=== PATIENT | female | born 1980 | race Caucasian/White ===

== ENCOUNTER 2017-04-07 22:13 | Emergency (ER) | payer MEDICAID ==
[~2017-04-07] VITALS: Ht 170.2 cm; Wt 65.8 kg
[~2017-04-07 22:13] MED LIST: FLEXERIL10 MG PO; GABAPENTIN100 M1 OR; LIDODERM 5% PA1 EACH TD; LORTAB 500 MG-71 TAB OR; NEXIUM40 MG PO; TYLENOL W/CODEI1 TA2 PO; ZITHROMAX Z PA250 MG PO
--- NOTE | 2017-04-07 22:39 | Emergency Room Report ---
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 N Clinical Suspician of Infection? Y Mental Status: 1 - Regular (Normal Baseline) Sepsis Risk:Low Sepsis Risk Have you (or family members/close friends) recently traveled outside the [place]? N If Yes, where/when: Have you had exposure to infectious disease within the past month? N TB? Other? Specify: Source patient, RN notes reviewed, family, old records Exam Limitations no limitations Comment pt with diarrhea over the last few yrs but lately with rectal pain assoc with this w/o blood - she has no fever or wt loss- pt with no jt pain and has no alopecia Cardiac Chest Pain Chest pain indicative of cardiac No Timing/Duration this evening Severity moderate ALLERGIES Coded Allergies: bupropion (UNKNOWN 11/06/15) doxycycline (UNKNOWN 11/06/15) diclofenac (Intermediate, STOMACH PAIN 11/06/15) Penicillins (Mild, NA-NAUSEA 11/06/15) cephalexin (Mild, NA-NAUSEA 11/06/15) ciprofloxacin (Mild, NA-NAUSEA 11/06/15) erythromycin base (Mild, NA-NAUSEA 11/06/15) Home Medications Reported Medications Cyclobenzaprine Hcl (Flexeril) 10 MG PO BID HYDROCODONE 7.5MG/[id number] (Hydrocodon-Acetaminoph 7.5-500) 1 TAB OR TIDP Gabapentin (Gabapentin 100MG) 1 CAP OR TID History Medical History General Angina: No NC: No Hypertension? No Hyperlipidemia? No CHF? No COPD? No Asthma? No CVA? No Seizures? No Diabetes? No GB Disease: No MRSA? No TB? No Cancer? 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 Respiratory denies cough, denies shortness of breath, denies wheezing Cardiovascular denies chest pain, denies syncope Gastrointestinal see HPI, abdominal pain, diarrhea, denies vomiting, other Genitourinary denies: dysuria, frequency, hesitancy, hematuria. Musculoskeletal denies back pain, denies joint pain, denies joint swelling, denies neck pain Skin denies rash Psychiatric/Neurological denies headache, denies seizure Physical Exam Vital Signs Vital Signs Date Time Temp Pulse Resp B/P Pulse O2 O2 Flow FiO2 Ox Delivery Rate 04/07 2350 98.6 75 14 119/74 98 04/07 2245 98.6 75 14 142/95 98 04/07 2227 98.6 75 14 138/98 98 - WBC >12,000 or <4,000 or 10% bands? 2 or more SIRS Criteria Met? B/P:119/74 MAP:111 Creatinine >2.0? UA output<0.5ml/kg/hr for 2 hrs? Platelet count >100,000? Lactate >2.0mmol/1? INR >1.2 or PTT > than 60 sec? Evidence of Organ Dysfunction? Provider documented clinical suspician of infection? Y Sepsis Criteria Count: 1 Sepsis Risk: Low Sepsis Risk General Appearance no apparent distress Eye Exam - bilateral eye PERRL, bilateral eye EOMI Ear, Nose, Throat normal ENT inspection Neck supple Respiratory Status No: respiratory distress. Lung Sounds bilateral: lungs clear. Cardiovascular regular rate/rhythm, no gallop, no JVD, no murmur, no rub Peripheral Pulses Pulses normal Yes Gastrointestinal soft, no organomegaly, no pulsatile mass, no guarding, no rebound Back no CVA tenderness Extremities normal inspection Strength 4 Upper Ext (L), 4 Upper Ext (R), 4 Lower Ext (L), 4 Lower Ext (R) Rectal normal rectal tone Nurse present during exam? 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 No Results/Orders Laboratory Tests 04/07/17 2250: Stl Aeromonas (PCR) NOT DETECTED, Stl Cyclospora species NOT DETECTED, Stool Rotavirus (PCR) NOT DETECTED, Stool Astrovirus (PCR) NOT DETECTED, Stool Campylobacter PCR NOT DETECTED, Stool Cryptosporidium PCR NOT DETECTED, Stl E. histolytica PCR NOT DETECTED, Stool Giardia Lamblia PCR NOT DETECTED, Stl P. shigelloides PCR NOT DETECTED, Stool Sapovirus (PCR) NOT DETECTED, Stool Vibrio (PCR) NOT DETECTED, Stl Vibrio cholerae PCR NOT DETECTED, Stl Norovirus GI/GII PCR NOT DETECTED, Adenovirus (PCR) NOT DETECTED, C. difficile Tox (PCR) NOT DETECTED, E. coli (PCR) NOT DETECTED, Salmonella (PCR) NOT DETECTED, Yersinia ( PCR) NOT DETECTED, Urine Color YELLOW, Urine Appearance CLEAR, Urine pH 7.0, Ur Specific [place] 1.010, Urine Protein NEGATIVE, Urine Ketones NEGATIVE, Urine Blood NEGATIVE, Urine Nitrate NEGATIVE, Urine Bilirubin NEGATIVE, Urine Urobilinogen 0.2, Ur Leukocyte Esterase NEGATIVE, Urine WBC OCC, Ur Squamous Epith Cells 3-5, Urine Bacteria 1+, Urine Glucose NEGATIVE 04/07/172229: Lactic Acid 1.7 04/07/172229: Sodium 139, Potassium 3.5, Chloride 105, Carbon Dioxide 25, BUN 11, Creatinine 0.9, Estimated Creat Clear 91, Estimated GFR (MDRD) 71, Glucose 120 H, Calcium 8.8, Total Bilirubin 0.2, AST 11 L, ALT 23, Alkaline Phosphatase 78, Total Protein 7.4, Albumin 3.8, Globulin 3.6 H, Albumin/Globulin Ratio 1.1, Amylase 51, Lipase 295, WBC 14.7 H, RBC 4.09 L, Hgb 13.4, Hct 40.7, MCV 99.5 H, RDW 13.4, Plt Count 346, Gran % 67.7, Gran # 10.0 H, Lymphocytes % 28.1, Monocytes % 4.2, Lymphocytes # 4.1, Monocytes # 0.6, PUBS MCHC 32.9, ESR 11, MCH 32.8 H Current Medication Orders Sig/Natalee Start time Last Medication Dose Route Stop Time Status Admin Sodium Chloride 1,000 ML .Q1H1M 04/07 2345 DC 04/07 IV 04/08 Sodium Chloride 10 ML PRN PRN 04/07 2345 AC IV 09/28 2342 Sodium Chloride 1,000 ML .STK-MED ONE 04/07 2345 DC IV Sodium Chloride 1,000 ML .Q1H1M 04/07 2230 DC 04/07 IV 04/07 2330 2235 Sodium Chloride 10 ML PRN PRN 04/07 2230 AC IV 04/08 2223 Sodium Chloride 1,000 ML .STK-MED ONE 04/07 2224 DC IV Orders Procedure Date/time Status ABD ACUTE(MUL VIEWS) 04/08 0049 Active URINE 04/07 223 Complete URINALYSIS/COMPLETE 04/07 2225 Complete C-REACTIVE PROTEIN 04/07 2224 Complete LIPASE 04/07 2223 Complete LACTIC ACID 04/07 2223 Complete SED RATE 04/07 2223 Complete DIARRHEA PANEL, PCR 04/07 2223 Complete COMPLETE METABOLIC PANEL 04/07 2223 Complete CBC WITH AUTO DIFF 04/07 2223 Complete AMYLASE 04/07 2223 Complete XRAY/CT/US XRAY/CT/US XRAY abdomen XR interpretation by reviewed by me Xray Results normal/NAD Departure Departure Time of Disposition 2355 Disposition DC Home or Self Care(routine) Clinical Impression Primary Impression: Diarrhea Qualifiers: Diarrhea type: unspecified type Qualified Code: R19.7 - Diarrhea, unspecified Secondary Impressions: Rectal pain Condition STABLE Referrals [place] RAPP,Doug MATSON MD,SASHA Gonzalez Patient Instructions Diarrhea Additional Instructions see pcp gaurav for eval Discharge Counseling Counseled pt/family regarding diagnosis, test results, follow up needs ED Critical Care Critical Care No at [id number]
[2017-04-07 22:48] LABS: HEMOGLOBIN 13.4 g/dL (12.2-16.2)
[2017-04-07 22:49] LABS: LYMPH # 4.1 K/mm3 (0.7-4.5); LYMPH % 28.1 % (10-50.0)
[2017-04-07 22:56] LABS: AEROMONAS NOT DETECTED (NOT DETECTE); ASTROVIRUS NOT DETECTED (NOT DETECTE); CYCLOSPORA CAYETANENSIS NOT DETECTED (NOT DETECTE); E COLI O157 NOT DETECTED (NOT DETECTE); ENTEROAGGREGATIVE E COLI NOT DETECTED (NOT DETECTE); ENTEROPATHOGENIC E COLI NOT DETECTED (NOT DETECTE); ENTEROTOXIGENIC E COLI NOT DETECTED (NOT DETECTE); NOROVIRUS NOT DETECTED (NOT DETECTE); SAPOVIRUS NOT DETECTED (NOT DETECTE); SHIGA-LIKE TOXIN PROD. E COLI NOT DETECTED (NOT DETECTE); SHIGELLA/ENTEROINVASIVE E COLI NOT DETECTED (NOT DETECTE); VIBRIO CHOLERAE NOT DETECTED (NOT DETECTE)
[2017-04-07 23:02] LABS: URINE BILIRUBIN - DIPSTICK NEGATIVE (NEG); URINE BLOOD NEGATIVE (NEG)
[2017-04-08 01:31] VITALS: BP 119/74
--- NOTE | 2017-04-08 05:21 | RADIOLOGY REPORT PS360 ---
ABD ACUTE(MUL VIEWS) HISTORY: abd pain ORDERING PHYSICIAN: Alice Carmen MD PATIENT AGE: 36 years COMPARISON: None FINDINGS: Frontal view of the chest shows no acute finding. Upright and supine views of the abdomen show a nonspecific nonobstructive bowel gas pattern. There has been prior spinal fusion at L5-S1 and there has been prior fusion of the left SI joint with 3 rods present along the left SI joint. No abnormal calcifications or acute bony anomalies. IMPRESSION: 1. No acute finding. 2. Postsurgical change
== END 2017-04-08 01:32 | disposition home or self-care (01) ==
LOC: ER 22:13
PROVIDERS: Emergency Medicine
DX: R19.7 Diarrhea, unspecified (principal); K62.89 Other specified diseases of anus and rectum; Z88.0 Allergy status to penicillin; Z88.8 Allergy status to other drugs, medicaments and biological substances; F17.210 Nicotine dependence, cigarettes, uncomplicated